=== PATIENT | male | born 1980 | race Caucasian/White ===

== ENCOUNTER → 2020-10-07 | Day surgery (SDC) | payer OTHER ==
[~2020-10-07] MED LIST: ABILIFY 5 MG TAB5 MG PO; ADDERALL 10 MG10 MG PO; ADVIL200 M1 PO; AMBIEN 5 MG TABL5 M1; CLONAZEPAM 1 MG1 M1 PO; DIPENTUM 250MG250 MG PO; KLONOPIN0.5 MG PO; NORCO5 PO; PROAIR HFA8.5 GM PO; PROZAC20 MG PO; XANAX1 MG
--- NOTE | ~2020-10-07 | OP ---
[facility] [address] [place] [address] OPERATIVE REPORT Name: SHAHANA CAMPOS Room: [facility].#: [id number] Admission: 10/07/20 Attend Phys: Napoleon Garcia Discharge: Date of : 76 Report #: [id number] THIS REPORT FOR: cc: Olu Macario Ghaison F. DO Patterson, Jonathan D. MD ~ DOC #: [id number] Napoleon Garcia MD DATE OF SURGERY: 10/07/2020 PREOPERATIVE DIAGNOSIS: Incarcerated umbilical hernia. POSTOPERATIVE DIAGNOSIS: Incarcerated umbilical hernia. PROCEDURE: Laparoscopic repair of incarcerated umbilical hernia with mesh. SURGEON: Napoleon Garcia MD ANESTHESIA: General. ESTIMATED BLOOD LOSS: Minimal. SPECIMENS: None. DESCRIPTION OF PROCEDURE: After informed consent was obtained, the patient was brought to the operating room and placed supine. SCDs were placed and working, preoperative antibiotics were administered, general anesthesia was induced. The abdomen was prepped and draped in the usual sterile fashion. A 5 mm incision was made in the left upper quadrant. A 5 mm trocar was placed under direct vision. Pneumoperitoneum was established. A left-sided 8 mm trocar and a right-sided 5 mm trocar was placed. He had incarcerated preperitoneal fat and a small umbilical hernia defect. This was all reduced. Defect was less than 1 cm. An 11 cm Bard Ventralight mesh was inserted. It was tacked up to the abdominal wall with 30 absorbable tacks. A 0 Ethibond suture was placed using a PMI suture passer as a transfascial suture in the superior midline of the mesh. The ports were removed under direct vision. The skin was closed with 4-0 Monocryl. Incisions were dressed with Steri-Strips. COMPLICATIONS: None. DISPOSITION: The patient was taken to recovery in satisfactory condition. MD LEON [place] [address] OPERATIVE REPORT Name: SHAHANA CAMPOS Room: [facility]#: [id number] Admission: 10/07/20 Attend Phys: Napoleon Garcia Discharge: Date of : 76 Report #: [id number] By: [id number] Garcia MD /nt
[2020-10-07 08:00] LABS: HEMATOCRIT 44.9 % (42.0-52.0); HEMOGLOBIN 15.4 gm/dL (14.0-18.0); MCH 31.2 pg (26.0-34.0); MCHC 34.3 g/dL (28.0-37.0); MPV 7.6 fl. (7.2-11.1); RBC 4.94 mil/uL (4.50-6.00); RDW-CV 13.7 % (10.5-14.5); WBC 10.1 thou/uL (4.0-11.0)
[2020-10-07 08:02] LABS: CALCIUM 8.9 mg/dL (8.5-10.1); POTASSIUM 3.9 mmol/L (3.5-5.1)
--- NOTE | 2020-10-07 11:00 | EKG ---
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1980 Requested By: Napoleon Garcia Order Number: [id number] Clementine MD: David Shoemaker Measurements Intervals [place] Rate: 53 P: 55 LA: 142 QRS: 54 QRSD: 105 T: 54 QT: 410 QTc: 385 Interpretive Statements Sinus rhythm RSR' in V1 or V2, probably normal variant ST elev, probable normal early repol pattern No previous ECG available for comparison Electronically Signed On 10-07-2020 11:00:12 CDT by David Shoemaker [email or web address] <ELECTRONICALLY SIGNED> By: David Shoemaker MD, [facility] 10/07/20 1100 [id number] David Shoemaker MD, [facility] /EPI
== END | disposition home or self-care (01) ==
LOC: M.SUR 05:48
PROVIDERS: ATTEND Surgery
DX: K42.0 Umbilical hernia with obstruction, without gangrene (principal); J45.909 Unspecified asthma, uncomplicated; Z79.899 Other long term (current) drug therapy; Z98.890 Other specified postprocedural states; Z20.822 Contact with and (suspected) exposure to COVID-19